=== PATIENT | female | born 1950 | race Caucasian/White ===

== ENCOUNTER 2023-09-17 22:29 | Inpatient (IN) | payer MEDICARE, OTHER ==
[~2023-09-17] VITALS: Ht 165.1 cm; Wt 49.4 kg
[2023-09-18 00:43] LABS: BASOPHILS # (AUTO) 0.1 K/UL (0.0-0.2); BASOPHILS % (AUTO) 2.1 % (0.0-2.0); EOSINOPHILS % (AUTO) 0.9 % (0.0-7.0); HEMATOCRIT 39.9 % (31.2-41.9); HEMOGLOBIN 13.3 g/dL (10.9-14.3); LYMPHOCYTES # (AUTO) 1.4 K/uL (0.8-4.8); LYMPHOCYTES % (AUTO) 26.2 % (20.5-51.5); MEAN CORPUSCULAR HEMOGLOBIN 30.3 uug (24.7-32.8); MEAN CORPUSCULAR HGB CONC 33 g/dL (32.3-35.6); MEAN CORPUSCULAR VOLUME 90.8 fL (75.5-95.3); MONOCYTES # (AUTO) 0.5 K/uL (0.1-1.30); MONOCYTES % (AUTO) 8.6 % (0.0-11.0); NEUTROPHILS # (AUTO) 3.2 K/uL (1.8-8.9); NEUTROPHILS % (AUTO) 62.2 % (38.5-71.5); PLATELET COUNT (AUTO) 283 K/uL (179-408); RED CELL DISTRIBUTION WIDTH 13.5 % (12.3-17.7); WHITE BLOOD COUNT (AUTO) 5.2 K/uL (3.8-11.8)
[2023-09-18 00:55] LABS: CALCIUM 9.4 mg/dL (8.5-10.1); CARBON DIOXIDE 28 mmol/L (21-32); CHLORIDE 104 mmol/L (98-107); CREATININE 0.7 mg/dL (0.6-1.3); GLUCOSE 127 mg/dL (74-106); POTASSIUM 4.4 mmol/L (3.5-5.1); SODIUM SERUM 140 mmol/L (136-145); UREA NITROGEN, BLOOD 14 mg/dL (7-18)
[2023-09-18 01:01] LABS: ALANINE AMINOTRANSFERASE 26 U/L (14-59); ALBUMIN 3.4 g/dL (3.4-5.0); ALKALINE PHOSPHATASE 63 U/L (50-136); ASPARTATE AMINOTRANSFERASE 25 U/L (15-37); BILIRUBIN,DIRECT 0.1 mg/dL (0.0-0.2); BILIRUBIN,TOTAL 0.6 mg/dL (0.2-1.0); TOTAL PROTEIN, SERUM 6.8 g/dL (6.4-8.2)
[2023-09-18] MEDS ORDERED: MAG HYDROX/AL HYDROX/SIMETH 30 ML LIQUID UDC PO PRN (02:45)
[2023-09-18] MEDS ORDERED: MAGNESIUM HYDROXIDE 30 ML LIQUID UDC PO PRN (02:45)
[2023-09-18] MEDS ORDERED: ACETAMINOPHEN 325 MG TABLET PO PRN (02:45)
[2023-09-18 08:03] VITALS: BP 123/84; TEMP 98.1; O2SAT 98
[2023-09-18] MEDS: CLONAZEPAM 0.5 MG TABLET PO PRN ×2 (10:36→22:21)
[2023-09-18 11:32] LABS: *BLOOD, URINE NEGATIVE (NEGATIVE); *CLARITY,URINE CLEAR (CLEAR); *COLOR,URINE YELLOW (YELLOW); *KETONES,URINE NEGATIVE (NEGATIVE); *PROTEIN,URINE 1+ (NEGATIVE); *UROBILINOGEN,URINE 0.2 E.U./dl (NORMAL); LEUKOCYTE ESTERASE ,URINE NEGATIVE (NEGATIVE); NITRITE, URINE NEGATIVE (NEGATIVE); PH,URINE 5.5 (5.0-8.0); UGLUCOSE NEGATIVE (NEGATIVE)
[2023-09-18 11:47] LABS: *BILIRUBIN,URIN 1+ (NEGATIVE)
[2023-09-18] MEDS: risperiDONE-M 0.5 MG TAB.RAPDIS PO SCH ×2 (11:57→20:59)
[2023-09-18 16:19] VITALS: BP 133/65; TEMP 98; O2SAT 98
[2023-09-18 16:44] LABS: BACTERIA,URINE MODERATE /HPF (NONE SEEN); CALCIUM OXALATE CRYSTALS,UR MANY /HPF (NONE SEEN); RBC,URINE 0-3 /HPF (0-3); SQUAMOUS EPITHELIAL CELL,UR FEW /HPF (NONE SEEN)
[2023-09-18 20:00] VITALS: BP 97/50; TEMP 97.5; O2SAT 98
[2023-09-19 08:01] VITALS: BP 117/71; TEMP 98; O2SAT 99
[2023-09-19 09:11] LABS: ALANINE AMINOTRANSFERASE 25 U/L (14-59); ALBUMIN 3.3 g/dL (3.4-5.0); ALKALINE PHOSPHATASE 66 U/L (50-136); ASPARTATE AMINOTRANSFERASE 18 U/L (15-37); BILIRUBIN,TOTAL 0.4 mg/dL (0.2-1.0); CALCIUM 8.7 mg/dL (8.5-10.1); CARBON DIOXIDE 28 mmol/L (21-32); CHLORIDE 104 mmol/L (98-107); CREATININE 0.7 mg/dL (0.6-1.3); GLUCOSE 124 mg/dL (74-106); POTASSIUM 4.3 mmol/L (3.5-5.1); SODIUM SERUM 139 mmol/L (136-145); TOTAL PROTEIN, SERUM 6.9 g/dL (6.4-8.2); UREA NITROGEN, BLOOD 23 mg/dL (7-18)
[2023-09-19] MEDS: CLONAZEPAM 0.5 MG TABLET PO PRN ×3 (11:06→23:38)
[2023-09-19] MEDS ORDERED: OLANZAPINE 10 MG VIAL IM ONE (13:15)
[2023-09-19] MEDS ORDERED: diphenhydrAMINE 50 MG/1 ML VIAL IM ONE (13:15)
[2023-09-19 15:31] VITALS: BP 109/57; TEMP 98; O2SAT 98
[2023-09-19] MEDS: risperiDONE-M 0.5 MG TAB.RAPDIS PO SCH (21:07)
[2023-09-19] MEDS: TEMAZEPAM 7.5 MG CAPSULE PO PRN (22:37)
[2023-09-20 07:45] VITALS: BP 113/50; TEMP 98.2; O2SAT 100
[2023-09-20] MEDS: GLUCERNA SHAKE 237 ML CAN PO SCH (09:36)
[2023-09-20 15:37] VITALS: BP 139/69; TEMP 98; O2SAT 98
[2023-09-20 19:52] VITALS: BP 126/57; TEMP 97.8; O2SAT 96
[2023-09-20] MEDS: CLONAZEPAM 0.5 MG TABLET PO PRN (20:57)
[2023-09-20] MEDS: risperiDONE-M 0.5 MG TAB.RAPDIS PO SCH ×2 (20:58→22:00)
[2023-09-20] MEDS: TEMAZEPAM 7.5 MG CAPSULE PO PRN (23:03)
[2023-09-21 07:47] VITALS: BP 110/62; TEMP 97.6; O2SAT 96
[2023-09-21] MEDS: GLUCERNA SHAKE 237 ML CAN PO SCH (08:05)
[2023-09-21] MEDS: CLONAZEPAM 0.5 MG TABLET PO PRN ×2 (12:02→15:49)
[2023-09-21 15:05] VITALS: BP 120/67; TEMP 98; O2SAT 96
[2023-09-21 20:01] VITALS: BP 110/60; TEMP 98.5; O2SAT 97
[2023-09-21] MEDS: risperiDONE-M 0.5 MG TAB.RAPDIS PO SCH (20:05)
[2023-09-21] MEDS: CEphaleXIN 500 MG CAPSULE PO SCH (20:05)
[2023-09-21] MEDS: TEMAZEPAM 7.5 MG CAPSULE PO PRN (22:58)
[2023-09-22 08:39] VITALS: BP 140/72; TEMP 98; O2SAT 98
[2023-09-22] MEDS: CEphaleXIN 500 MG CAPSULE PO SCH (08:40)
[2023-09-22] MEDS: GLUCERNA SHAKE 237 ML CAN PO SCH (08:40)
[2023-09-22] MEDS: CLONAZEPAM 0.5 MG TABLET PO PRN ×2 (11:26→16:26)
[2023-09-22 15:08] VITALS: BP 111/53; TEMP 97.8; O2SAT 97
[2023-09-22] MEDS: NITROFURANTOIN/NITROFURAN MAC 100 MG CAPSULE PO SCH ×2 (20:08→21:57)
[2023-09-22] MEDS: risperiDONE-M 0.5 MG TAB.RAPDIS PO SCH ×2 (20:09→21:57)
[2023-09-22 20:21] VITALS: BP 126/60; TEMP 97.9; O2SAT 96
[2023-09-22] MEDS: TEMAZEPAM 7.5 MG CAPSULE PO PRN (22:47)
[2023-09-23 07:57] VITALS: BP 98/51; TEMP 98.8; O2SAT 99
[2023-09-23] MEDS: GLUCERNA SHAKE 237 ML CAN PO SCH (08:32)
[2023-09-23] MEDS: NITROFURANTOIN/NITROFURAN MAC 100 MG CAPSULE PO SCH ×2 (08:32→20:48)
[2023-09-23] MEDS: CLONAZEPAM 0.5 MG TABLET PO PRN ×2 (12:30→18:04)
[2023-09-23 16:14] VITALS: BP 123/94; TEMP 98.7; O2SAT 98
[2023-09-23 20:00] VITALS: BP 130/72; TEMP 98.6; O2SAT 99
[2023-09-23] MEDS: risperiDONE-M 0.5 MG TAB.RAPDIS PO SCH (20:47)
[2023-09-23] MEDS: TEMAZEPAM 7.5 MG CAPSULE PO PRN (21:54)
[2023-09-24 08:10] VITALS: BP 108/56; TEMP 98.4; O2SAT 98
[2023-09-24] MEDS: NITROFURANTOIN/NITROFURAN MAC 100 MG CAPSULE PO SCH ×2 (09:03→20:08)
[2023-09-24] MEDS: GLUCERNA SHAKE 237 ML CAN PO SCH (09:04)
[2023-09-24] MEDS: CLONAZEPAM 0.5 MG TABLET PO PRN (14:51)
[2023-09-24 20:00] VITALS: BP 123/69; TEMP 97.7; O2SAT 97
[2023-09-24] MEDS: risperiDONE-M 0.5 MG TAB.RAPDIS PO SCH (20:09)
[2023-09-25 07:47] VITALS: BP 125/53; TEMP 98.3; O2SAT 98
[2023-09-25] MEDS: CLONAZEPAM 0.5 MG TABLET PO PRN ×3 (08:53→20:02)
[2023-09-25] MEDS: NITROFURANTOIN/NITROFURAN MAC 100 MG CAPSULE PO SCH ×2 (08:53→20:02)
[2023-09-25] MEDS: GLUCERNA SHAKE 237 ML CAN PO SCH (08:54)
[2023-09-25 20:02] VITALS: BP 112/60; TEMP 98.2; O2SAT 99
[2023-09-25] MEDS: risperiDONE-M 0.5 MG TAB.RAPDIS PO SCH (20:02)
[2023-09-25] MEDS: TEMAZEPAM 7.5 MG CAPSULE PO PRN (21:04)
[2023-09-26 08:00] VITALS: BP 134/68; TEMP 97.6; O2SAT 97
[2023-09-26] MEDS: GLUCERNA SHAKE 237 ML CAN PO SCH (09:00)
[2023-09-26] MEDS: NITROFURANTOIN/NITROFURAN MAC 100 MG CAPSULE PO SCH ×2 (09:16→20:05)
[2023-09-26 16:00] VITALS: BP 104/56; TEMP 97.6; O2SAT 95
[2023-09-26 19:35] VITALS: BP 111/54; TEMP 99; O2SAT 95
[2023-09-26] MEDS: risperiDONE-M 0.5 MG TAB.RAPDIS PO SCH (20:05)
[2023-09-26] MEDS: CLONAZEPAM 0.5 MG TABLET PO PRN (20:13)
[2023-09-26] MEDS: TEMAZEPAM 7.5 MG CAPSULE PO PRN (22:31)
[2023-09-27] MEDS: CLONAZEPAM 0.5 MG TABLET PO PRN ×3 (00:12→14:34)
[2023-09-27 08:00] VITALS: BP 106/47; TEMP 98.2; O2SAT 100
[2023-09-27] MEDS: NITROFURANTOIN/NITROFURAN MAC 100 MG CAPSULE PO SCH (09:02)
[2023-09-27] MEDS: GLUCERNA SHAKE 237 ML CAN PO SCH (09:02)
[2023-09-27] MEDS ORDERED: CLONAZEPAM 0.5 MG TABLET PO PRN (14:30)
[2023-09-27] MEDS: risperiDONE-M 0.5 MG TAB.RAPDIS PO SCH ×2 (15:39→17:25)
[2023-09-27] MEDS: CLONAZEPAM 1 MG TABLET PO PRN (19:55)
[2023-09-27] MEDS: ATORVASTATIN 10 MG TABLET PO SCH (22:01)
[2023-09-27] MEDS: TEMAZEPAM 7.5 MG CAPSULE PO PRN (22:01)
[2023-09-28 08:34] VITALS: BP 117/49; TEMP 97.6; O2SAT 100
[2023-09-28] MEDS: risperiDONE-M 0.5 MG TAB.RAPDIS PO SCH ×2 (09:07→17:37)
[2023-09-28] MEDS: GLUCERNA SHAKE 237 ML CAN PO SCH (09:08)
[2023-09-28] MEDS: CLONAZEPAM 1 MG TABLET PO PRN ×2 (13:12→20:36)
[2023-09-28 16:37] VITALS: BP 99/48; TEMP 97.3; O2SAT 99
[2023-09-28 20:00] VITALS: BP 136/88; TEMP 98.6; O2SAT 96
[2023-09-28] MEDS: ATORVASTATIN 10 MG TABLET PO SCH (20:36)
[2023-09-28] MEDS: TEMAZEPAM 7.5 MG CAPSULE PO PRN (22:01)
[2023-09-29] MEDS: CLONAZEPAM 1 MG TABLET PO PRN ×3 (08:23→19:00)
[2023-09-29] MEDS: risperiDONE-M 0.5 MG TAB.RAPDIS PO SCH ×2 (08:23→17:17)
[2023-09-29] MEDS: GLUCERNA SHAKE 237 ML CAN PO SCH (09:00)
[2023-09-29 09:02] VITALS: BP 121/56; TEMP 97.7; O2SAT 97
[2023-09-29 17:54] VITALS: BP 111/52; TEMP 98; O2SAT 99
== END 2023-09-29 19:15 | DRG 885 ==
LOC: ER 22:40 → GPS 23:15
PROVIDERS: ADMIT Psychiatry & Neurology Psychiatry; ATTEND Internal Medicine
DX: F29 Unspecified psychosis not due to a substance or known physiological condition (principal); B95.2 Enterococcus as the cause of diseases classified elsewhere; F02.811 Dementia in other diseases classified elsewhere, unspecified severity, with agitation; Z68.1 Body mass index [BMI] 19.9 or less, adult; N39.0 Urinary tract infection, site not specified; F02.83 Dementia in other diseases classified elsewhere, unspecified severity, with mood disturbance; F02.84 Dementia in other diseases classified elsewhere, unspecified severity, with anxiety; R64 Cachexia; G30.9 Alzheimer's disease, unspecified; R62.7 Adult failure to thrive; G40.909 Epilepsy, unspecified, not intractable, without status epilepticus; E11.9 Type 2 diabetes mellitus without complications; B96.20 Unspecified Escherichia coli [E. coli] as the cause of diseases classified elsewhere; E78.5 Hyperlipidemia, unspecified; Z91.81 History of falling
CPT/HCPCS: 36415; 85025; J1200; J2358